=== PATIENT | female | born 1980 | race Hispanic/Latino ===

== ENCOUNTER 2018-07-30 13:46 | Emergency (ER) | payer OTHER ==
[2018-07-30 13:51] VITALS: BMI 20.1
[2018-07-30 13:53] VITALS: BP 102/61; PULSE 82; RESP 16; TEMP 98.4
[2018-07-30 13:55] VITALS: O2SAT 99
--- NOTE | 2018-07-30 14:50 | ED PDOC ---
HPI: General Adult Time Seen by Provider: 07/30/18 14:11 Chief Complaint (Nursing): Rib Injury Chief Complaint (Provider): Rib Injury History Per: Patient History/Exam Limitations: no limitations Onset/Duration Of Symptoms: Days (x2) Current Symptoms Are (Timing): Still Present Additional Complaint(s): 38 y/o female presents to the ED for evaluation of right rib pain, onset 2 days ago. Patient reports of falling onto a metal lv while working out landing on her right side. Patient notes pain has persisted since injury and worsens with deep breaths. Patient denies taking any medications for pain. PMD: no provider. Past Medical History Reviewed: Historical Data, Nursing Documentation, Vital Signs Vital Signs: Last Vital Signs Temp 98.4 F 07/30/18 13:51 Pulse 82 07/30/18 13:51 Resp 16 07/30/18 13:51 BP 102/61 07/30/18 13:51 Pulse Ox 99 07/30/18 13:52 - Medical History PMH: No Chronic Diseases - Surgical History Surgical History: No Surg Hx - Family History Family History: States: Unknown Family Hx - Home Medications Home Medications: Ambulatory Orders Medication Instructions Recorded Naproxen 375 mg PO Q8 PRN #21 tablet 07/30/18 - Allergies Allergies/Adverse Reactions: Allergies Allergy/AdvReac Type Severity Reaction Status Date / Time No Known Allergies Allergy Verified 07/30/18 13:52 Review of Systems ROS Statement: Except As Marked, All Systems Reviewed And Found Negative Musculoskeletal: Positive for: Other (Right rib pain) Physical Exam - Reviewed Nursing Documentation Reviewed: Yes Vital Signs Reviewed: Yes - Physical Exam Appears: Positive for: Uncomfortable Gastrointestinal/Abdominal: Positive for: Other (Noted tenderness on lower right rib cage). Negative for: Tenderness (lower abdominal and PUQ tenderness. ) - Laboratory Results Urine POC: Negative - ECG O2 Sat by Pulse Oximetry: 99 (RA) Pulse Ox Interpretation: Normal - Progress ED Course And Treament: CXR/ RIB SERIES RIGHT: NO PNEUMOTHORAX. NO OBVIOUS RIB FX GIVEN INCENTIVE SPIROMETRY INSTRUCTIONS Medical Decision Making Medical Decision Making: Time: 1410 Plan: -- ED Urine -- Ribs Right & PA chest XR -- Patient declined any pain medications at this time. Scribe Attestation: Documented by Lottie Dubon, acting as a scribe Dakota Schumacher PA-C. Provider Scribe Attestation: All medical record entries made by the Scribe were at my direction and personally dictated by me. I have reviewed the chart and agree that the record accurately reflects my personal performance of the history, physical exam, medical decision making, and the department course for this patient. I have also personally directed, reviewed, and agree with the discharge instructions and disposition. Disposition - Clinical Impression Clinical Impression: Rib injury - Patient ED Disposition Is Patient to be Admitted: No - Disposition Disposition: Routine/Home Disposition Time: 15:37 Condition: FAIR Prescriptions: Naproxen 375 mg PO Q8 PRN #21 tablet PRN Reason: Pain, Moderate (4-7) Instructions: Rib Fracture (DC)
--- NOTE | 2018-07-31 13:10 | RAD ---
Date of service: 07/30/2018 PROCEDURE: Radiographs of the Chest and Right Ribs. HISTORY: R/O RIB FX COMPARISON: None available. TECHNIQUE: Frontal radiograph of the chest and multiple oblique radiographs of the right ribs were obtained. FINDINGS: RIGHT RIBS: No fracture or focal lesion visualized. LUNGS: Clear. PLEURA: No pneumothorax or pleural fluid. CARDIOVASCULAR: Normal cardiac size. No pulmonary vascular congestion. No aortic atherosclerotic calcification present OTHER FINDINGS: None. IMPRESSION: Unremarkable radiographs of the chest and right ribs. No right rib fracture.
== END 2018-07-30 15:47 | disposition home or self-care (01) ==
LOC: H.ER 13:46
DX: S22.49XA Multiple fractures of ribs, unspecified side, initial encounter for closed fracture (principal); W22.8XXA Striking against or struck by other objects, initial encounter; Y92.89 Other specified places as the place of occurrence of the external cause